=== PATIENT | male | born 1940 | race Caucasian/White ===

== ENCOUNTER 2017-04-19 13:57 | Outpatient (CLI) | payer MEDICARE | END 2017-04-19 13:58 | disposition home or self-care (01) | LOC: BICRAD 13:57 | PROVIDERS: ATTEND Internal Medicine | DX: R07.9 Chest pain, unspecified (principal) | CPT/HCPCS: 71020 ==

== ENCOUNTER 2017-10-16 10:46 | Outpatient (CLI) | payer MEDICARE | END 2017-10-16 10:47 | disposition home or self-care (01) | LOC: BICRAD 10:46 | PROVIDERS: ATTEND Internal Medicine | DX: J44.9 Chronic obstructive pulmonary disease, unspecified (principal); I70.0 Atherosclerosis of aorta; I77.819 Aortic ectasia, unspecified site | CPT/HCPCS: 71046 ==

== ENCOUNTER 2017-10-16 12:26 | Outpatient (CLI) | payer MEDICARE, OTHER ==
[2017-10-16 14:27] LABS: PTT 28.9 SEC (22.9-36.1); Prothrombin Time 13.5 SEC (12.0-14.7)
== END 2017-10-16 12:27 | disposition home or self-care (01) ==
LOC: LABBT 12:26
PROVIDERS: ATTEND Urology
DX: Z01.812 Encounter for preprocedural laboratory examination (principal); D49.4 Neoplasm of unspecified behavior of bladder
CPT/HCPCS: 85610; 85730

== ENCOUNTER 2017-10-18 08:35 | Day surgery (SDC) | payer MEDICARE ==
[2017-10-16 13:06] VITALS: BMI 32.3
[2017-10-18] MEDS ORDERED: cefTRIAXone\\ROCEPHIN 2 GM in Sodium Chloride 0.9% 100 ML IVPB SCH (10:15)
[2017-10-18] MEDS ORDERED: Midazolam HCl 2 mg/2 ml Vial ONE (11:19)
[2017-10-18] MEDS ORDERED: Fentanyl 100 MCG/2 ML VIAL ONE ×2 (11:19→13:12)
[2017-10-18] MEDS ORDERED: Iothalamate Meglumine 60% 50 ML VIAL FS ONE ×2 (11:46→12:21)
[2017-10-18] MEDS ORDERED: PROPOFOL 200 MG/20 ML VIAL ONE (11:55)
[2017-10-18] MEDS ORDERED: Succinylcholine Chloride 20 MG/ML 10 ml SYRINGE FS ONE (11:55)
[2017-10-18] MEDS ORDERED: Glycopyrrolate 0.2 MG/ML 5 ML SYRINGE ONE (11:55)
[2017-10-18] MEDS ORDERED: Lidocaine 1% PF 5 ML VIAL ONE (11:55)
--- NOTE | 2017-10-18 13:25 | OP ---
DATE OF PROCEDURE: 10/18/2017 PREOPERATIVE DIAGNOSES: 1. History of bladder lesion. 2. Hematospermia. POSTOPERATIVE DIAGNOSES: 1. History of bladder lesion. 2. Hematospermia. PROCEDURE PERFORMED: Cysto, TURBT of right wall in the rough area and trigone and prostatic urethral biopsy because of hematospermia and also bilateral retrograde. SURGEON: Dr. Earnest Garrett. ANESTHETIC: General. ESTIMATED BLOOD LOSS: Less than 50 mL. DRAINS PLACED: An 18-Yemeni Marquez catheter, 20 mL in the balloon. FINDINGS: There is a 1 cm papillary tumor on the right wall. There was an abnormal area of mucosa i n the middle of the trigone not involving ureteral orifices. Prostatic urethra looked normal, but be cause of history of hematospermia and the finding of a bladder tumor, we did do a biopsy of the prost atic urethra adjacent to the ejaculatory duct and verumontanum. OPERATIVE TECHNIQUE: Obtained written verbal consent from the patient after receiving IV Rocephin, ginette hernandez was taken to the operating suite. He was placed in supine position on the treatment table. PlexiP ulses were placed on his lower extremities and turned on. He was given a general anesthetic and oral obturator intubation. He was placed in a dorsal lithotomy position and sterilely prepped and draped . Cystoscopy was performed with a 22-Yemeni sheath. This was well lubricated and passed under direc t vision through the male urethra into the urinary bladder with aid of a 30-degree lens and a video c amera and monitor. The bladder was filled and emptied number of times, it is being examined with bot h 30 and 70-degree lens. At this point, we went ahead and removed the instruments and dilated gently to 28 Yemeni with Lorie sounds and passed a 24-Yemeni resectoscope sheath with visual obturator well lubricated through the male urethra into the bladder with the aid of a 30 degree lens, a video c amera and monitor. The bladder tumor loop was brought in and our landmarks were obtained. We resect ed the tumor in the right wall, trigone sent that off and prostatic urethra sent that off and cauteri zed all these areas. The instruments were removed. We backloaded it. We went back in with a 22-[facility] sheath and flushed a 5-Yemeni cone tip catheter with contrast. [employer] KUB was taken and injected contrast up the right ureter and up the left ureter about 10 mL of contrast in both sides. There are no filling defects, no hydronephrosis and each side drained well. At this point, the instruments we re removed. A Marquez catheter sterilely inserted and it was flushed, it was clear and easily flushing and draining. I hooked up to gravity bag. He was at this point awakened and extubated and taken by stretcher to the recovery room.
--- NOTE | 2017-10-18 13:28 | RAD ---
RETROGRADE PYELOGRAM 11 VIEWS: HISTORY: Bladder cancer. There is good opacification of both the right and left collecting systems. No signs of any obstructi on. No filling defects demonstrated. IMPRESSION: Unremarkable bilateral retrograde pyelogram. POS: LISA
[2017-10-18] MEDS ORDERED: traMADol HCl 50 MG TAB ONE (15:21)
== END 2017-10-18 16:35 | disposition home or self-care (01) ==
LOC: SDC 08:35
PROVIDERS: ATTEND Urology
PROC: 0TBB8ZX Excision of Bladder, Via Natural or Artificial Opening Endoscopic, Diagnostic (ICD-10-PCS; principal; 2017-10-18)
PROC: 0TBD8ZX Excision of Urethra, Via Natural or Artificial Opening Endoscopic, Diagnostic (ICD-10-PCS; 2017-10-18)
PROC: BT14YZZ Fluoroscopy of Kidneys, Ureters and Bladder using Other Contrast (ICD-10-PCS; 2017-10-18)
DX: C67.9 Malignant neoplasm of bladder, unspecified (principal); I10 Essential (primary) hypertension; E78.00 Pure hypercholesterolemia, unspecified; J44.9 Chronic obstructive pulmonary disease, unspecified; M19.90 Unspecified osteoarthritis, unspecified site; R36.1 Hematospermia; Z88.7 Allergy status to serum and vaccine; Z79.82 Long term (current) use of aspirin; Z79.899 Other long term (current) drug therapy
CPT/HCPCS: 74420; 88305; 96374; J0696; J2001; J2250; J2704; J3010; J7050; Q9961

== ENCOUNTER 2018-08-30 10:29 | Outpatient (CLI) | payer MEDICARE, OTHER ==
--- NOTE | 2018-08-30 11:00 | RAD ---
TWO VIEWS OF THE CHEST: COMPARISON: 08/23/2016, 10/16/2017. HISTORY: Dyspnea. FINDINGS: Two views of the chest show a normal size cardiomediastinal silhouette. There is no evidence of cons olidation, mass, or pleural effusion. Stable increased interstitial lung markings are present. Dege nerative changes are seen in the spine. IMPRESSION: No evidence of acute cardiopulmonary disease. POS: TPC
== END 2018-08-30 10:30 | disposition home or self-care (01) ==
LOC: RAD 10:29
PROVIDERS: ATTEND Internal Medicine Critical Care Medicine
DX: R06.00 Dyspnea, unspecified (principal)
CPT/HCPCS: 71046

== ENCOUNTER 2019-02-14 12:02 | Outpatient (CLI) | payer MEDICARE, OTHER ==
--- NOTE | 2019-02-14 12:36 | RAD ---
Exam: Bilateral AP and lateral weightbearing views of right and left knees. HISTORY: Osteoarthritis. Tricompartment arthrosis and degenerative changes are noted of both knees. Fairly extensive vascular calcifications. No acute fracture or dislocation. IMPRESSION: Arthrosis and degenerative changes of both knees.
--- NOTE | 2019-02-14 13:43 | RAD ---
LEFT ANKLE 3 VIEWS: Date: 02/14/19 HISTORY: Left ankle pain. FINDINGS/IMPRESSION: The ankle mortise is maintained. No acute fracture, dislocation, or bony destruction is seen. Posteri or and plantar calcaneal spurs are present. Well corticated bony densities adjacent to the lateral ma lleolus are likely due to old injury. POS: OFF
--- NOTE | 2019-02-14 13:46 | RAD ---
RIGHT HIP 2 VIEWS: Date: 02/14/19 HISTORY: Right hip pain. FINDINGS/IMPRESSION: There are degenerative changes. No fracture, dislocation, or bony destruction seen. POS: OFF
--- NOTE | 2019-02-14 13:46 | RAD ---
RIGHT ANKLE 3 VIEWS: Date: 02/14/19 HISTORY: Right ankle pain. FINDINGS/IMPRESSION: There are postop changes with 2 screws in the medial malleolus and fusion of the distal tibia/fibula. No acute fracture, dislocation, or bony destruction seen. Degenerative changes present in the ankle joint. Posterior and plantar calcaneal spurs are present. POS: OFF
--- NOTE | 2019-02-14 13:47 | RAD ---
LEFT HIP 2 VIEWS: Date: 02/14/19 HISTORY: Left hip pain. FINDINGS/IMPRESSION: Degenerative changes are present. No fracture, dislocation, or bony destruction identified. POS: OFF
== END 2019-02-14 12:03 | disposition home or self-care (01) ==
LOC: BICRAD 12:02
PROVIDERS: ATTEND Internal Medicine
DX: M16.0 Bilateral primary osteoarthritis of hip (principal); M17.0 Bilateral primary osteoarthritis of knee; M19.071 Primary osteoarthritis, right ankle and foot; M19.072 Primary osteoarthritis, left ankle and foot; M25.551 Pain in right hip; M25.552 Pain in left hip; M25.561 Pain in right knee; M25.562 Pain in left knee; M25.571 Pain in right ankle and joints of right foot; M25.572 Pain in left ankle and joints of left foot; M77.31 Calcaneal spur, right foot; M77.32 Calcaneal spur, left foot; Z98.1 Arthrodesis status
CPT/HCPCS: 73565

== ENCOUNTER 2019-10-09 11:30 | Outpatient (CLI) | payer MEDICARE, OTHER ==
--- NOTE | 2019-10-09 13:42 | RAD ---
TWO VIEW CHEST: 10/09/19 HISTORY: Dyspnea. The lungs are well aerated and appear clear. No infiltrate or vascular congestion. Heart and mediasti num unremarkable. Osseous structures show mild wedging of mid thoracic vertebra with ossification of the anterior longitudinal ligament. IMPRESSION: No acute lung process. POS: AGW
== END 2019-10-09 11:31 | disposition home or self-care (01) ==
LOC: RAD 11:30
PROVIDERS: ATTEND Internal Medicine Critical Care Medicine
DX: R06.00 Dyspnea, unspecified (principal)
CPT/HCPCS: 71046

== ENCOUNTER 2020-10-12 10:34 | Outpatient (CLI) | payer MEDICARE, OTHER | END 2020-10-12 10:35 | disposition home or self-care (01) | LOC: BICRAD 10:34 | PROVIDERS: ATTEND Internal Medicine Critical Care Medicine | DX: R06.00 Dyspnea, unspecified (principal) | CPT/HCPCS: 71046 ==

== ENCOUNTER 2023-02-08 13:14 | Outpatient (CLI) | payer MEDICARE, OTHER | END 2023-02-08 13:15 | disposition home or self-care (01) | LOC: RAD 13:14 | PROVIDERS: ATTEND Internal Medicine Critical Care Medicine | DX: R06.00 Dyspnea, unspecified (principal) | CPT/HCPCS: 71046 ==

== ENCOUNTER 2024-02-20 12:25 | Outpatient (CLI) | payer MEDICARE, OTHER | END 2024-02-20 12:26 | disposition home or self-care (01) | LOC: RAD 12:25 | PROVIDERS: ATTEND Internal Medicine Critical Care Medicine | DX: R06.00 Dyspnea, unspecified (principal); J98.11 Atelectasis; J98.4 Other disorders of lung; M47.814 Spondylosis without myelopathy or radiculopathy, thoracic region; I51.7 Cardiomegaly | CPT/HCPCS: 71046 ==

== ENCOUNTER 2025-02-20 13:17 | Outpatient (CLI) | payer MEDICARE, OTHER | END 2025-02-20 13:18 | disposition home or self-care (01) | LOC: RAD 13:17 | PROVIDERS: ATTEND Internal Medicine Critical Care Medicine | DX: R06.00 Dyspnea, unspecified (principal) | CPT/HCPCS: 71046 ==